=== PATIENT | female | born 1970 | race Caucasian/White ===

== ENCOUNTER 2019-09-17 16:30 | Emergency (ER) | payer OTHER, SELFPAY ==
[2019-09-17 16:31] VITALS: BP 149/92; PULSE 71; RESP 19; TEMP 36.7; O2SAT 97; BMI 25.9
--- NOTE | 2019-09-17 16:35 | RAD_ITS ---
STUDY: X-RAY CHEST REASON FOR EXAM: Female, 49 years old. Chest pain. Dizziness. Nausea. TECHNIQUE: Single AP portable view of the chest. COMPARISON: None. FINDINGS: The lungs are clear and expanded. There is no demonstrated pleural abnormality. Normal size heart. Normal mediastinum and hansel. Normal visualized pulmonary arteries. Normal visualized aortic arch and descending thoracic aorta. Normal visualized thoracic spine. Normal visualized ribs, clavicles, and shoulders. There is no demonstrated abnormality of the visualized soft tissue structures of the upper abdomen. RAD/Chest 1 View (Portable) IMPRESSION: Normal x-ray examination of the chest. Electronically Signed: Brooks Olivares DO at 16:50 EST Tel [phone], Service support ,
[2019-09-17 16:36] VITALS: O2SAT 97
--- NOTE | 2019-09-17 16:36 | EKG12_ITS ---
Test Reason : CP/DIZZY Blood Pressure : / mmHG Vent. Rate : 073 BPM Atrial Rate : 073 BPM P-R Int : 130 ms QRS Dur : 084 ms QT Int : 386 ms P-R-T Axes : 019 015 042 degrees QTc Int : 425 ms Normal sinus rhythm Normal ECG Confirmed by DESMOND BARNETT, BRUCE ([id number]), web editor SURYA TENA ([id number] on 09/19/2019 9:38:18 AM Referred By: MAILE/GIANCARLO Confirmed By:BRUCE LOGAN MD
--- NOTE | 2019-09-17 16:37 | ED.VIS.GEN ---
History of Present Illness Chief Complaint: Chest Pain Informant: Patient Onset: Today Context: Gradual Onset Timing: Intermittent Current Severity: Moderate Maximum Severity: Moderate Narrative: The patient presents to the emergency department with substernal chest heaviness. The patient was in her normal state of health. She states that this morning, she was at work. She states she began to have a left-sided chest pressure with associated nausea. She also felt short of breath. She states she had the same symptoms about 3 weeks ago. She states other than that, she is never had anything like this. She has no history of coronary vascular disease. Patient states that she was a diabetic, but with diet and weight loss she has been off all medications. She does not smoke. She denies any history of hypertension. There is a family history of heart disease, but she denies any history of coronary vascular disease. She is never had a stress test for her cath. Prior similar symptoms: No Recent Illness/Hospitalization: No Past Medical History - Allergies and Home Meds Allergies/Adverse Reactions: Allergies No Known Allergies Allergy (Verified 09/17/19 16:31) Primary Care Physician: Duran Benton DO [Primary Care Provider] - Prior records reviewed: Yes Past Medical History: - - Prior history of diabetes Surgical History: no surgical history Review of Systems General: Denies: Chills, Fever, Sweats Eyes: Denies: Visual changes - bilaterally, Diplopia ENT: Denies: Rhinorrhea, Sore throat Cardiovascular: Reports: Chest pain. Denies: Palpitations Respiratory: Reports: Dyspnea. Denies: Cough, Dyspnea on exertion Gastrointestinal: Reports: Nausea. Denies: Abdominal pain, Vomiting, Diarrhea, Melena, Hematochezia Genitourinary: Denies: Dysuria, Hematuria, Frequency Musculoskeletal: Denies: Back pain, Extremity Pain Skin: Denies: Rash, Wounds Neurological: Denies: Headache, Weakness, Numbness Physical Exam Vital Signs/Narrative: Vital Signs Temp Pulse Resp BP Pulse Ox 09/17/19 16:31 98.1 F 92 19 H 149/92 H 97 Inital Vital Signs reviewed: Yes General: Well nourished, Well developed, No Acute Distress Head: Normocephalic, Atraumatic Eyes: Perrl, EOMI ENT: Moist mucous membranes, No rhinorrhea Neck: Supple, Nontender Cardiovascular: Regular rate, Regular rhythm, No murmurs Respiratory: No distress, CTA bilaterally, Chest nontender Abdomen: Soft, Nontender, Nondistended, Normal bowel sounds Back: Nontender, Normal Inspection Extremities: Nontender, No edema Skin: Normal color, No rash Neurological: Alert, Oriented x3, Cranial nerves II-XII grossly intact, Normal Strength, Normal Sensation Psychological: Normal affect, Normal Mood Diagnostic/Tx/Re-eval Clinical Impression(s) from Imaging Studies Chest X-Ray 09/17/19 16:35 IMPRESSION: Normal x-ray examination of the chest. Electronically Signed: Brooks Olivares DO at 16:50 EST Tel [phone], Service support , Abnormal Lab Results 09/17/19 09/17/19 09/17/19 16:45 16:45 16:45 WBC 6.7 RBC 4.62 Hgb 14.4 Hct 43.0 MCV 93.1 MCH 31.2 MCHC 33.5 RDW Std Deviation 42.7 RDW Coeff of Mick 12.4 Plt Count 212 MPV 10.3 Immature Gran % (Auto) 0.300 Neut % (Auto) 50.6 Lymph % (Auto) 38.6 [place] % (Auto) 8.3 Eos % (Auto) 1.6 Baso % (Auto) 0.6 Absolute Neuts (auto) 3.4 Absolute Lymphs (auto) 2.60 Nucleated RBC % 0 D-Dimer Quant (PE/DVT) < 0.27 L Sodium 141 Potassium 4.1 Chloride 107 Carbon Dioxide 28.0 Anion Gap 6 BUN 20 H Creatinine 0.79 Estim Creat Clear Calc 81.53 Est GFR (MDRD) Af Amer 100 Est GFR (MDRD) Non-Af 83 BUN/Creatinine Ratio 25.4 H Glucose 90 Calcium 9.3 Troponin I < 0.015 - Rhythm Strip Rhythm Strip: Sinus Rhythm Rate: 80 Ectopy: None - EKG Initial EKG Interpretation: Sinus Rhythm, No Acute Injury Pattern Prior: No Prior - Medical Decision Making The patient presents with intermittent chest pain. Her EKG was obtained. There is no acute ischemia. IV was established. I also obtained a d-dimer which was negative. Screening labs including cardiac enzymes are normal. Chest x-ray shows no evidence of volume overload, pneumothorax, or other dangerous process. The patient has a heart score of 2. I did discuss options with her. At this point, she wants to do outpatient therapy and follow-up for a stress test. I do feel that this is reasonable. She was counseled on concerning symptoms and reasons to return. She will be discharged home. Impression 1. Chest pain ED Disposition - Plan for ED Patient: Disposition: Home or Assisted Living Instructions: CHEST PAIN, Uncertain Cause Referrals: Duran Benton DO [Primary Care Provider] -
[2019-09-17 16:53] VITALS: BP 141/87; PULSE 65; RESP 16; O2SAT 97
[2019-09-17 16:55] LABS: Absolute Neutrophil Count 3.4 X10^3/uL (2.0-7.7); Basophil# 0.04 X10^3/uL; Basophil% 0.6 % (0-1); Eosinophil# 0.11 X10^3/uL; Eosinophils% 1.6 % (0-5); Hemoglobin 14.4 g/dL (12.0-15.0); Lymphocyte % 38.6 % (19-41); Mean Corp Hgb Conc 33.5 g/dL (32-36); Mean Corpuscular Hgb 31.2 pg (27.0-32.0); Mean Corpuscular Volume 93.1 fL (81-99); Mean Platelet Vol. 10.3 fl (6.2-12.0); Monocyte# 0.56 X10^3/uL; Monocyte% 8.3 % (0-10); NRBC Flagged by Analyzer 0 % (0-5); Neutrophil # 3.41 X10^3/uL (2.7-7.7); Neutrophil % 50.6 % (47-70); Platelet Count 212 K/mm3 (150-450); RBC Distribution Width CV 12.4 % (11.6-14.6); RBC Distribution Width SD 42.7 fl (35.1-43.9); Red Blood Count 4.62 M/mm3 (4.2-5.4); White Blood Count 6.7 K/mm3 (4.4-11.0)
[2019-09-17] MEDS: Aspirin 81 MG TAB.CHEW 324 MG PO (16:59)
[2019-09-17] MEDS: 0.9% Normal Saline 1,000 ML 150 ML IV (17:04)
[2019-09-17 17:17] LABS: Anion Gap 6 (5-15); BUN 20 mg/dL (7-18); BUN/Creat Ratio 25.4 RATIO (10-20); Calcium,Total 9.3 mg/dL (8.5-10.1); Chloride 107 mmol/L (98-107); Creatinine, Serum 0.79 mg/dL (0.55-1.02); EST Glomerular Filtration Rate 83 mL/min (>60); Est Glom Filt Rate - Afr Amer 100 mL/min (>60); Estimated Creatinine Clearance 81.53 ml/min; Glucose 90 mg/dL (74-106); Potassium 4.1 mmol/L (3.5-5.1); Sodium Level 141 mmol/L (136-145)
[2019-09-17 17:22] LABS: D-Dimer Quantitative (DVT/PE) < 0.27 FEU/ug/m (0.27-0.49)
[2019-09-17 17:38] VITALS: BP 131/62; PULSE 60; RESP 18; O2SAT 98
[2019-09-17 17:43] VITALS: BP 131/82; PULSE 57; RESP 17; O2SAT 99
== END 2019-09-17 17:51 | disposition home or self-care (01) ==
LOC: ED 16:50
PROVIDERS: Emergency Provider Emergency Medicine; Family Provider Student in an Organized Health Care Education/Training Program; PCP Student in an Organized Health Care Education/Training Program
DX: R07.89 Other chest pain (principal); R11.0 Nausea; R06.00 Dyspnea, unspecified; E11.9 Type 2 diabetes mellitus without complications
CPT/HCPCS: 71045; 80048; 84484; 85025; 85379; 93005; 96360; 96361; 99285; J7030; A4216